=== PATIENT | male | born 1985 | race Caucasian/White ===

== ENCOUNTER 2020-07-02 16:15 | Emergency (ER) | payer OTHER ==
[2020-07-02 17:03] LABS: BASOPHILS % (AUTO) 0.5 %; EOSINOPHILS # (AUTO) 0.2 10^3/uL (0.0-0.7); EOSINOPHILS % (AUTO) 2.4 %; HGB - HEMOGLOBIN 14.3 g/dL (14.0-18.0); LYMPHOCYTES # (AUTO) 2.3 10^3/uL (1.5-3.5); LYMPHOCYTES % (AUTO) 36.5 %; MEAN CORPUSCULAR HEMOGLOBIN 30.3 pg (27.0-31.0); MEAN CORPUSCULAR HGB CONC 34.1 g/dL (32.0-36.0); MEAN CORPUSCULAR VOLUME 88.8 fL (80.0-94.0); MEAN PLATELET VOLUME 9.7 fL (7.4-11.4); MONOCYTES # (AUTO) 0.6 10^3/uL (0.0-1.0); MONOCYTES % (AUTO) 10.1 %; NEUTROPHILS # (AUTO) 3.1 10^3/uL (1.5-6.6); PLT - PLATELET COUNT 232 10^3/uL (130-450); RED BLOOD COUNT 4.72 10^6/uL (4.70-6.10); RED CELL DISTRIBUTION WIDTH 11.6 % (12.0-15.0); WHITE BLOOD COUNT 6.2 x10^3/uL (4.8-10.8)
[2020-07-02 17:25] LABS: ALBUMIN 4.3 g/dL (3.2-5.5); ALBUMIN/GLOBULIN RATIO 1.3 (1.0-2.2); BILIRUBIN,TOTAL 0.5 mg/dL (0.2-1.0); CALCIUM 9.2 mg/dL (8.5-10.3); CREATININE 1.2 mg/dL (0.6-1.2); TOTAL PROTEIN 7.7 g/dL (6.7-8.2)
--- NOTE | 2020-07-02 18:57 | ED Physician Documentation ---
History of Present Illness - Stated complaint Stated Complaint: LOW RT ABD PX - Chief complaint Chief Complaint: Abd Pain - History obtained from History obtained from: Patient - History of Present Illness Timing: How many days ago (2) - Additonal information Additional information: 35-year-old male presents to the emergency department with 2 to 3 days of colick y right lower quadrant abdominal pain. He has no nausea or vomiting. He has had some loss of appetite. No fevers. Denies dysuria urgency or frequency. Unable to describe if there are any exacerbating or alleviating factors. He does not have significant pain at this time. He reports no changes in his bowel habits. Denies constipation. He is most worried he could have appendicitis. Pt denies testiculat pain, tenderness or swelling of scrotum Review of Systems Constitutional: reports: Reviewed and negative Ears: reports: Reviewed and negative Nose: reports: Reviewed and negative Throat: reports: Reviewed and negative Cardiac: reports: Reviewed and negative Respiratory: reports: Reviewed and negative GI: reports: Abdominal Pain. denies: Nausea, Vomiting, Constipation, Diarrhea : denies: Dysuria, Frequency, Hesitancy, Hematuria Skin: reports: Reviewed and negative Musculoskeletal: reports: Reviewed and negative Neurologic: reports: Reviewed and negative PD PAST MEDICAL HISTORY - Past Surgical History Past Surgical History: Yes - Present Medications Home Medications: Ambulatory Orders Medication Instructions Recorded Confirmed Ibuprofen [Motrin] 800 mg PO Q8H PRN #30 tablet 01/16/15 Multivitamin [Multivitamins] 1 each PO DAILY 01/16/15 01/16/15 Ondansetron Odt [Zofran] 4 mg TL Q6H PRN #10 tablet 01/16/15 - Allergies Allergies/Adverse Reactions: Allergies Allergy/AdvReac Type Severity Reaction Status Date / Time No Known Drug Allergies Allergy Verified 07/02/20 16:29 - Social History Does the pt smoke?: No Smoking Status: Former smoker Does the pt drink ETOH?: Yes Does the pt have substance abuse?: No - Immunizations Immunizations are current?: Yes PD ED PE NORMAL - General General: Alert and oriented X 3, No acute distress - HEENT HEENT: Atraumatic - Neck Neck: Supple, no meningeal sign - Cardiac Cardiac: RRR, No murmur - Respiratory Respiratory: No respiratory distress - Abdomen Abdomen: Normal bowel sounds, Soft. No: Non tender (Mild nonfocal right lower quadrant tenderness without rebound or guarding. Negative McBurney.) - Back Back: No CVA TTP - Derm Derm: Normal color, Warm and dry, No rash - Extremities Extremities: No deformity - Neuro Neuro: Alert and oriented X 3 Eye Opening: Spontaneous Motor: Obeys Commands Verbal: Oriented GCS Score: 15 - Psych Psych: Normal mood Results - Vitals Vitals: Vital Signs - 24 hr 07/02/20 07/02/20 16:30 18:31 Temperature 36.2 C L 36.6 C Heart Rate 62 57 L Respiratory 16 17 Rate Blood Pressure 137/82 H 136/94 H O2 Saturation 100 97 Oxygen O2 Source Room air - Labs Labs: Laboratory Tests 07/02/20 07/02/20 07/02/20 16:58 16:58 18:56 WBC 6.2 RBC 4.72 Hgb 14.3 Hct 41.9 L MCV 88.8 MCH 30.3 MCHC 34.1 RDW 11.6 L Plt Count 232 MPV 9.7 Neut # (Auto) 3.1 Lymph # (Auto) 2.3 Vance # (Auto) 0.6 Eos # (Auto) 0.2 Baso # (Auto) 0.0 Absolute Nucleated RBC 0.00 Nucleated RBC % 0.0 Sodium 137 Potassium 4.1 Chloride 99 L Carbon Dioxide 28 Anion Gap 10.0 BUN 13 Creatinine 1.2 Estimated GFR (MDRD) 70 L Glucose 99 Calcium 9.2 Total Bilirubin 0.5 AST 20 ALT 21 Alkaline Phosphatase 62 Total Protein 7.7 Albumin 4.3 Globulin 3.4 Albumin/Globulin Ratio 1.3 Lipase 34 Urine Color YELLOW Urine Clarity CLEAR Urine pH 7.0 Ur Specific [place] 1.015 Urine Protein NEGATIVE Urine Glucose (UA) NEGATIVE Urine Ketones NEGATIVE Urine Occult Blood NEGATIVE Urine Nitrite NEGATIVE Urine Bilirubin NEGATIVE Urine Urobilinogen 0.2 (NORMAL) Ur Leukocyte Esterase NEGATIVE Ur Microscopic Review NOT INDICATED Urine Culture Comments NOT INDICATED - Rads (name of study) CT abd Radiology: Final report received (No acute abnormality identified. No free fluid. Normal appearance appendix.) PD MEDICAL DECISION MAKING - ED course Complexity details: reviewed results, re-evaluated patient, considered differential, d/w patient ED course: 35-year-old male presents the emergency department with 3 days of colicky right lower quadrant abdominal pain. He does have mild tenderness here on exam but no guarding or rebound. No findings of leukocytosis or urinary tract infection. CT of the abdomen without any acute finding. Results discussed with patient. He is free of pain at this time. Will be dc home. Emergent return precautions discussed Departure - Departure Disposition: 01 Home, Self Care Clinical Impression: Colicky RLQ abdominal pain Condition: Stable Record reviewed to determine appropriate education?: Yes Instructions: ED Abdominal Pain Unkn Cause Comments: Davey your CT scan did not show appendicitis. It was a normal CT scan for age. As we discussed your labs were normal. Please discuss this ED visit with with [facility] [employer]. If you develop fevers, have suddenly sever unrelenting abdominal pain, uncontrolled vomiting, or feel your symptoms are worsening, please return to the ED
[2020-07-02 19:15] LABS: BILIRUBIN,URINE NEGATIVE (NEGATIVE); GLUCOSE, URINE (UA) NEGATIVE (NEGATIVE); KETONES,URINE (UA) NEGATIVE (NEGATIVE); LEUKOCYTE ESTERASE, URINE NEGATIVE (NEGATIVE); NITRITE,URINE NEGATIVE (NEGATIVE); OCCULT BLOOD,URINE NEGATIVE (NEGATIVE); PROTEIN,URINE NEGATIVE (NEGATIVE); UROBILINOGEN,URINE 0.2 (NORMAL) E.U./dL (NORMAL)
[2020-07-02 19:16] LABS: CLARITY,URINE CLEAR (CLEAR)
--- NOTE | 2020-07-02 20:00 | CT Report ---
PROCEDURE: Abdomen/Pelvis W INDICATIONS: RLQ abd CONTRAST: IV CONTRAST: Optiray 320 ml: 100 PO CONTRAST: *NO PO CONTRAST TECHNIQUE: After the administration of intravenous contrast, 5 mm thick sections acquired from the diaphragms to the symphysis. 5 mm thick coronal and sagittal reformats were acquired. For radiation dose reducti on, the following was used: automated exposure control, adjustment of mA and/or kV according to chavez ent size. COMPARISON: None. FINDINGS: Image quality: Excellent. ABDOMEN: Lung bases: Lung bases are clear. Heart size is normal. Solid organs: Liver and spleen are normal in size and enhancement. Gallbladder is unremarkable Bob iary system is non dilated. Pancreas enhances normally. No adrenal nodules. Kidneys demonstrate no rmal size and enhancement, without hydronephrosis. Small cortical hypodensity in the left kidney whic h is too small to further characterize. Peritoneum and bowel: Bowel loops demonstrate normal wall thickness and caliber. The appendix is no rmal in caliber, (3/58). Lumen of the appendix is filled with gas a sign of normalcy. No periappendic eal fluid. Question of a small diverticulum in the right colon, (12/31). No free fluid or air. Nodes and vessels: No retroperitoneal or mesenteric adenopathy by size criteria. Aorta and inferior vena cava are normal in size. Miscellaneous: No ventral hernias. PELVIS: Genitourinary: Bladder wall thickness is normal. Miscellaneous: No definite inguinal hernias. Prominent fat at the right inguinal canal. No adenopath y. Bones: No suspicious bony lesions. No vertebral body compression fractures. IMPRESSION: No acute abnormality identified. No free fluid. Normal appearance of the appendix. Reviewed by: Rober Allen MD on 07/02/2020 7:59 PM PST Approved by: Rober Allen MD on 07/02/2020 7:59 PM PST Station ID: [id number]
[2020-07-02 20:15] VITALS: BP 133/89
== END 2020-07-02 20:20 | disposition home or self-care (01) ==
LOC: ED 16:15
DX: R10.31 Right lower quadrant pain (principal); Z87.891 Personal history of nicotine dependence
CPT/HCPCS: 36415; 74177; 80053; 81001; 81003; 83690; 85025; 87086; 99284

== ENCOUNTER 2022-02-04 14:40 | Outpatient (CLI) | payer OTHER ==
--- NOTE | 2022-02-04 15:08 | XRAY Report ---
PROCEDURE: Ribs w/PA Chest RT INDICATIONS: CONTUSION OF RT FRONT WALL OF THORAX TECHNIQUE: 3 views of the right ribs were acquired, along with a single view chest. COMPARISON: None FINDINGS: Surgical changes and devices: None. Bones and chest wall: No fractures or dislocations. No suspicious bony lesions. Overlying soft tis sues appear unremarkable. Lungs and pleura: No pleural effusions or pneumothorax. Lungs appear clear. Mediastinum: Mediastinal contours appear normal. Heart size is normal. IMPRESSION: No visualized acute fracture or dislocation. However, occult injury cannot be excluded. Recommend dax rt interval imaging follow-up in 7-10 days as clinically indicated for additional evaluation. Reviewed by: Ashlyn Epps MD on 02/04/2022 3:07 PM PDT Approved by: Ashlyn Epps MD on 02/04/2022 3:07 PM PDT Station ID: [id number]
== END 2022-02-04 14:41 | disposition home or self-care (01) ==
LOC: DI 14:40
PROVIDERS: ATTEND Physician Assistant
DX: S20.211A Contusion of right front wall of thorax, initial encounter (principal)